=== PATIENT | female | born 1945 | race Caucasian/White ===

== ENCOUNTER 2017-07-02 07:39 | Day surgery (SDC) | payer MEDICARE ==
[2017-06-28 16:35] VITALS: BMI 40.1
[~2017-07-02 07:39] MED LIST: DEXAMETHASONE SOD PHOSPHATE 10 MG/ML 1 ML VIAL IV ONE; HYDROmorphone 1 MG/ML 1 ML SYRINGE IVP PRN; ONDANSETRON 4 MG/2 ML VIAL IVP ONE; ceFAZolin 2 GM in SODIUM CHLORIDE 0.9% 100 ML IVPB ONE
[2017-07-02 08:42] LABS: Glucose,Whole Blood 197 mg/dL (75-99)
[2017-07-02] MEDS: LACTATED RINGERS 1,000 ML IV SCH ×2 (08:44→13:00)
[2017-07-02] MEDS ORDERED: LIDOCAINE 1% 20 ML VIAL (10MG/ML) FOR IV START INTRADERMA ONE (08:45)
[2017-07-02] MEDS: MIDAZOLAM 2 MG/2 ML VIAL IV ONE ×2 (09:15→09:29)
[2017-07-02] MEDS ORDERED: LIDOCAINE 2%-EPI 1:100,000 20 ML VIAL ONE (09:45)
[2017-07-02] MEDS ORDERED: MIDAZOLAM 2 MG/2 ML VIAL ONE (09:45)
[2017-07-02] MEDS ORDERED: PROPOFOL 10 MG/ML 20 ML VIAL IV ONE (09:45)
[2017-07-02] MEDS ORDERED: KETAMINE 10 MG/ML 20 ML VIAL ONE (09:45)
[2017-07-02] MEDS ORDERED: fentaNYL (PF) 50 MCG/ML 2 ML AMP ONE (09:45)
[2017-07-02] MEDS ORDERED: GLYCOPYRROLATE 0.2 MG/ML 2 ML VIAL ONE (09:45)
[2017-07-02] MEDS ORDERED: ROPIVACAINE 5 MG/ML 30 ML VIAL ONE (09:45)
[2017-07-02] MEDS ORDERED: ceFAZolin 1,000 MG in SODIUM CHLORIDE 0.9% 1,000 ML IRRIGATION ONE (10:08)
[2017-07-02] MEDS ORDERED: LACTATED RINGERS 1,000 ML IV ONE (11:06)
--- NOTE | 2017-07-02 11:14 | FL ---
EXAMINATION TYPE: FL guidance operating room, XR wrist limited LT DATE OF EXAM: 07/02/2017 CLINICAL HISTORY: Left wrist fracture. TECHNIQUE: Fluoroscopy. Limited intraoperative views left wrist. COMPARISON: None. FINDINGS: Fluoroscopic guidance was provided during open reduction internal fixation procedure perfo rmed by Dr. Green. A total of 4 seconds of fluoroscopic time was utilized during the procedure and 2 spot images are acquired. Intraoperative images acquired show placement of distal fixating plate with multiple extending screws through distal radius, satisfactory alignment is seen on intraoperative images provided after reduct ion and fixation. Fracture line is not well seen. Prominent body habitus noted. IMPRESSION: As Above.
[2017-07-02] MEDS ORDERED: hydrOXYzine PAMOATE 25 MG CAP PO PRN (11:21)
[2017-07-02] MEDS ORDERED: diphenhydrAMINE 25 MG CAP PO PRN (11:21)
[2017-07-02] MEDS ORDERED: ONDANSETRON 4 MG/2 ML VIAL IVP PRN (11:21)
[2017-07-02] MEDS ORDERED: HYDROmorphone 1 MG/ML 1 ML SYRINGE IVP PRN ×2 (11:21)
[2017-07-02] MEDS ORDERED: TEMAZEPAM 15 MG CAP PO PRN (11:21)
[2017-07-02] MEDS ORDERED: SENNOSIDES-DOCUSATE SODIUM 1 EACH TAB PO PRN (11:21)
[2017-07-02 11:35] LABS: Glucose,Whole Blood 173 mg/dL (75-99)
[2017-07-02 12:49] LABS: Glucose,Whole Blood 185 mg/dL (75-99)
[2017-07-02 12:53] VITALS: RESP 18
--- NOTE | 2017-07-02 13:26 | P.CONS ---
History of Present Illness - Reason for Consult Consult date: 07/02/17 Medical management Requesting physician: Anam Green - Chief Complaint Fracture left lower end of radius - History of Present Illness This is a 72-year-old female one of Dr. Gonzalez with a previous medical history significant for hypertension and hypertensive cardiovascular disease with left ventricular hypertrophy, history of diabetes mellitus type 2, GERD, history of kidney stones, idiopathic peripheral neuropathy, hyperlipidemia, hypothyroidism, patient fell and Saturday while she was trying to open her door and she stepped on the curb and landed on her left arm to try to break her fall she ended up with a broken lower end of the radius underwent surgery that was done by Dr. Aviles were asked to see the patient for medicine for medical management. Patient is laying down in bed in no apparent distress she denies any chest pain , shortness breath, she has no abdominal pain, nausea, vomiting, or diarrhea. Her family where the bedside including her brother as well as her son. Review of Systems Constitutional: Denies anorexia, Denies chronic headaches, Denies lethargy, Denies malaise, Denies weight gain, Denies weight loss Eyes: denies blurred vision, denies bulging eye, denies decreased vision, denies diplopia Ears: deny: decreased hearing Ears, nose, mouth and throat: Denies dysphagia, Denies neck lump, Denies sore throat Cardiovascular: Reports decreased exercise tolerance, Reports high blood pressure, Reports shortness of breath, Denies chest pain, Denies phlebitis, Denies rapid heart beat, Denies syncope Respiratory: Denies congestion, Denies cough, Denies home oxygen, Denies sleep apnea, Denies snoring, Denies wheezing Gastrointestinal: Denies abdominal pain, Denies belching, Denies change in bowel habits, Denies heartburn, Denies melena, Denies nausea, Denies vomiting Genitourinary: Denies dysuria, Denies urgency Musculoskeletal: Denies myalgias Musculoskeletal: left: hand pain, hand stiffness, hand swelling, absent: ankle pain, ankle stiffness, ankle swelling, elbow pain, elbow stiffness, elbow swelling, foot pain, foot stiffness, hip pain, hip stiffness, hip swelling, knee pain, knee stiffness, knee swelling, shoulder pain, shoulder stiffness, shoulder swelling, wrist pain, wrist stiffness, wrist swelling Integumentary: Denies pruritus, Denies rash Neurological: Denies numbness, Denies weakness Psychiatric: Denies anxiety, Denies depression Endocrine: Denies fatigue, Denies weight change Past Medical History Past Medical History: Diabetes Mellitus, Eye Disorder, GERD/Reflux, Hyperlipidemia, Hypertension, Osteoarthritis (OA), Thyroid Disorder Additional Past Medical History / Comment(s): FX LT WRIST History of Any Multi-Drug Resistant Organisms: None Reported Past Surgical History: Appendectomy, Cholecystectomy, Hernia Repair, Hysterectomy, Orthopedic Surgery Additional Past Surgical History / Comment(s): LT KNEE SX. LT ANKLE SX,. LEFT WRIST ORIF Past Anesthesia/Blood Transfusion Reactions: Previous Problems w/ Anesthesia Additional Past Anesthesia/Blood Transfusion Reaction / Comm: PT STATES THAT SHE HAD GENERAL ANESTHESIA AND STOPPED BREATHING. Past Psychological History: No Psychological Hx Reported Smoking Status: Never smoker Past Alcohol Use History: None Reported Past Drug Use History: None Reported - Past Family History Mother Family Medical History: Cancer (Mother at age of 82 from throat cancer she also has CAD and hypertension.), Coronary Artery Disease (CAD), Hypertension Father Family Medical History: GI Bleed (Father at the age of 57 from perforated ulcer.) Brother(s) Family Medical History: Cancer (Patient had 4 brothers 2 is alive with no major medical problems, one from a 70 dementia and other one from bone cancer.), Dementia Sister(s) Family Medical History: No Reported History (Patient has one sister no major medical problems.) Son(s) Family Medical History: No Reported History (Patient has 2 sons no major medical problems.) Medications and Allergies Home Medications Medication Instructions Recorded Confirmed Type Aspirin [Adult Low Dose Aspirin EC] 81 mg PO DAILY 06/28/17 06/28/17 History Atorvastatin [Lipitor] 10 mg PO DAILY 06/28/17 06/28/17 History B-Carotene/Vit C/E/Lut/Min 29 1 each PO DAILY 06/28/17 06/28/17 History [Macuvite with Lutein Tablet] Baclofen [Lioresal] 10 mg PO TID 06/28/17 06/28/17 History Furosemide [Lasix] 40 mg PO DAILY 06/28/17 06/28/17 History Gabapentin [Neurontin] 300 mg PO BID 06/28/17 06/28/17 History HYDROcodone/APAP 5-325MG [[place] 2 tab PO Q4HR PRN 06/28/17 06/28/17 History 5-325] Lactobacillus Acidophilus 1 each PO DAILY 06/28/17 06/28/17 History [Acidophilus] Lisinopril [Zestril] 2.5 mg PO DAILY 06/28/17 06/28/17 History Omeprazole [PriLOSEC] 20 mg PO DAILY 06/28/17 06/28/17 History Propylene Glycol/Peg 400 [Systane 1 drop BOTH EYES BID 06/28/17 06/28/17 History Ultra 0.4-0.3% Eye Drp] Vit C/E/Zn/Coppr/Lutein/Zeaxan 2 each PO DAILY 06/28/17 06/28/17 History [Preservision Areds 2 Softgel] amLODIPine [Norvasc] 5 mg PO DAILY 06/28/17 06/28/17 History metFORMIN HCL 1,000 mg PO BID 06/28/17 06/28/17 History Allergies Allergy/AdvReac Type Severity Reaction Status Date / Time codeine Allergy Unknown Verified 07/02/17 08:23 erythromycin base Allergy Nausea & Verified 07/02/17 08:23 Vomiting nifedipine Allergy Unknown Verified 07/02/17 08:23 ANESTHSIA-TYPE UNKNOWN Allergy STOPPED Uncoded 07/02/17 08:23 BREATHING PER PT Physical Exam Vitals: Vital Signs Temp Pulse Pulse Pulse Resp BP BP 07/02/17 12:15 97.7 F 101 H 18 145/58 07/02/17 12:00 101 H 16 120/58 07/02/17 11:45 104 H 16 114/52 07/02/17 11:30 107 H 16 125/57 07/02/17 11:17 98.1 F 115 H 16 133/61 07/02/17 08:41 97.6 F 104 H 16 135/60 Pulse Ox 07/02/17 12:15 92 L 07/02/17 12:00 98 07/02/17 11:45 95 07/02/17 11:30 95 07/02/17 11:17 93 L 07/02/17 08:41 94 L Intake and Output 07/01/17 07/02/17 07/02/17 22:59 06:59 14:59 Intake Total 1301 Output Total 20 Balance 1281 Intake: IV 1301 Output: Estimated Blood Loss 20 - Constitutional General appearance: no acute distress, obese - EENT Eyes: anicteric sclerae, EOMI, PERRLA, no ptosis, no scleral icterus, normal appearance ENT: hearing grossly normal, NA/AT, normal oropharynx, no thrush Ears: bilateral: normal - Neck Neck: no lymphadenopathy, normal ROM, no rigidity, no stridor Carotids: bilateral: upstroke delayed Thyroid: bilateral: normal size - Respiratory Respiratory: bilateral: diminished, negative: dullness, rales, rhonchi, wheezing , prolonged expiration, prolonged inspiration - Cardiovascular Rhythm: regular Heart sounds: normal: S1, S2 Abnormal Heart Sounds: systolic murmur - Gastrointestinal General gastrointestinal: normal bowel sounds, soft, no splenomegaly, no tenderness, no umbilical hernia, no ventral hernia - Integumentary Integumentary: normal, normal turgor - Neurologic Neurologic: CNII-XII intact - Musculoskeletal Musculoskeletal: strength equal bilaterally - Psychiatric Psychiatric: A&O x's 3, appropriate affect, intact judgment & insight Results CBC & Chem 7: 07/02/17 08:45 Labs: Abnormal Lab Results - Last 24 Hours (Table) 07/02/17 07/02/17 07/02/17 Range/Units 08:32 11:31 12:46 POC Glucose (mg/dL) 197 H 173 H 185 H (75-99) mg/dL Assessment and Plan Plan: Assessment and plan: 1. Postoperative day #0 status post left wrist open reduction and internal fixation. Patient was instructed to use the incentive spirometer any early ambulation, and tinea current pain management as outlined by orthopedic surgery. 2. Hypertension and hypertensive cardiovascular disease. Continue patient on amlodipine 5 mg orally once every day, lisinopril 2.5 mg orally once every day. 3. Diabetes mellitus type 2. Continue patient on metformin thousand milligrams orally twice every day. BJ before each meal and at bedtime. 4. Peripheral neuropathy. Continue gabapentin 100 mg at bedtime. 5. Hyperlipidemia. Continue Lipitor 10 mg orally once every day. 6. Adult macro degeneration. Continue patient on PreserVision. 7. GERD. Continue patient on PPI. 8. Anxiety disorder. Stable. 9. Obesity with possible obstructive sleep apnea need sleep study as an outpatient. 10. Peripheral edema. Hold Lasix for the next 24 hours and resume tomorrow morning. 11. DVT prophylaxis. Heparin 5000 units subcutaneously every 8 hours. 12. GI prophylaxis. Continue patient on PPI. 13. Thanks for the consult we will follow with you.
[2017-07-02] MEDS: traMADol 50 MG TAB PO SCH ×3 (16:36→20:06)
[2017-07-02 16:37] LABS: Glucose,Whole Blood 230 mg/dL (75-99)
[2017-07-02] MEDS: metFORMIN 500 MG TAB PO SCH (16:38)
[2017-07-02] MEDS: ceFAZolin 2 GM in SODIUM CHLORIDE 0.9% 100 ML IVPB SCH (16:39)
[2017-07-02] MEDS: HEPARIN SODIUM,PORCINE 5,000 UNIT/ML 1 ML VIAL SQ SCH (16:39)
[2017-07-02] MEDS: BACLOFEN 10 MG TAB PO SCH ×2 (16:39→20:02)
[2017-07-02] MEDS: ARTIFICIAL TEARS-HYPROMELLOSE DROPS 15 ML BTL BOTH EYES SCH (20:02)
[2017-07-02] MEDS: GABAPENTIN 300 MG CAP PO SCH (20:02)
[2017-07-02 20:31] LABS: Glucose,Whole Blood 151 mg/dL (75-99)
[2017-07-03] MEDS: HYDROmorphone 1 MG/ML 1 ML SYRINGE IVP PRN ×4 (00:11→10:51)
[2017-07-03] MEDS: ceFAZolin 2 GM in SODIUM CHLORIDE 0.9% 100 ML IVPB SCH (00:14)
[2017-07-03] MEDS: HEPARIN SODIUM,PORCINE 5,000 UNIT/ML 1 ML VIAL SQ SCH ×2 (00:16→08:15)
[2017-07-03 06:56] LABS: Basophils % (A) 0 %; CH 30.1; CHCM 32.4; Eosinophils # (A) 0.3 k/uL (0-0.7); Eosinophils % (A) 2 %; HCT 35.3 % (34.0-46.0); HDW 2.21; HGB 11.3 gm/dL (11.4-16.0); Luc # (Auto) 0.13; Luc % (Auto) 1; Lymphocytes # (A) 2.5 k/uL (1.0-4.8); Lymphocytes % (A) 21 %; MCH 29.9 pg (25.0-35.0); MCV 93.3 fL (80.0-100.0); Mean Platelet Volume 8.5; Monocytes # (A) 0.5 k/uL (0-1.0); Monocytes % (A) 4 %; Neutrophils # (A) 8.4 k/uL (1.3-7.7); Neutrophils % (A) 71 %; RBC 3.79 m/uL (3.80-5.40); RDW 13.8 % (11.5-15.5); WBC 11.8 k/uL (3.8-10.6); WBC (Perox) 12.06
[2017-07-03 07:14] LABS: Glucose,Whole Blood 120 mg/dL (75-99)
[2017-07-03] MEDS ORDERED: PANTOPRAZOLE 40 MG TABLET PO SCH (07:30)
[2017-07-03 07:40] LABS: Calcium 8.5 mg/dL (8.4-10.2); Potassium 4.6 mmol/L (3.5-5.1); Total Bilirubin 0.4 mg/dL (0.2-1.3); Total Protein 5.9 g/dL (6.3-8.2)
[2017-07-03 07:46] LABS: Magnesium 1.1 mg/dL (1.6-2.3)
[2017-07-03] MEDS: metFORMIN 500 MG TAB PO SCH (07:46)
[2017-07-03] MEDS: LACTATED RINGERS 1,000 ML IV SCH ×2 (07:49)
[2017-07-03] MEDS: BACLOFEN 10 MG TAB PO SCH (08:15)
[2017-07-03] MEDS: GABAPENTIN 300 MG CAP PO SCH (08:15)
[2017-07-03] MEDS: ARTIFICIAL TEARS-HYPROMELLOSE DROPS 15 ML BTL BOTH EYES SCH (08:15)
[2017-07-03] MEDS: LACTOBACILLUS ACIDOPH & BULGAR 1 EACH PACKET PO SCH ×2 (08:16→08:22)
--- NOTE | 2017-07-03 08:16 | P.DS ---
Providers Expected date of discharge: 07/03/17 Attending physician: Anam Green Consults: 07/02/17 11:21 Consult Physician Routine Consulting Provider: Adalberto Gonzalez Reason/Comments: medical management Do you want consulting provider notified?: Yes Primary care physician: Adalberto Gonzalez - Discharge Diagnosis(es) (1) Status post wrist surgery Current Visit: Yes Status: Acute (2) Distal radius fracture, left Current Visit: Yes Status: Acute Hospital Course: This is a 72-year-old female who is seen in our office last week with injury to her left wrist. Exam and x-ray revealed displaced distal radius fracture. It is recommended that she have open reduction internal fixation of the left wrist. The patient is admitted to [facility] on 07/02/2017 for open reduction showed fixation of left wrist. The procedures performed without convocation or sequelae. Patient is doing well postoperatively. Vital signs are stable. Patient is discharged to home on 07/03/2017. She is to take her splint to her left upper extremity. She is encouraged to do finger motion frequently. Follow -up in 10-14 days. Patient Condition at Discharge: Good Plan - Discharge Summary New Discharge Prescriptions: New Cephalexin [Keflex] 500 mg PO Q8HR #15 cap Sennosides-Docusate Sodium [Senokot-S] 1 tab PO BID #60 tablet traMADol HCL [Ultram] 50 mg PO Q6HR PRN #90 tab PRN Reason: Pain No Action amLODIPine [Norvasc] 5 mg PO DAILY Lisinopril [Zestril] 2.5 mg PO DAILY HYDROcodone/APAP 5-325MG [[place] 5-325] 2 tab PO Q4HR PRN PRN Reason: Pain Gabapentin [Neurontin] 300 mg PO BID Furosemide [Lasix] 40 mg PO DAILY Baclofen [Lioresal] 10 mg PO TID Atorvastatin [Lipitor] 10 mg PO DAILY Omeprazole [PriLOSEC] 20 mg PO DAILY metFORMIN HCL 1,000 mg PO BID Vit C/E/Zn/Coppr/Lutein/Zeaxan [Preservision Areds 2 Softgel] 2 each PO DAILY Propylene Glycol/Peg 400 [Systane Ultra 0.4-0.3% Eye Drp] 1 drop BOTH EYES BID Lactobacillus Acidophilus [Acidophilus] 1 each PO DAILY B-Carotene/Vit C/E/Lut/Min 29 [Macuvite with Lutein Tablet] 1 each PO DAILY Aspirin [Adult Low Dose Aspirin EC] 81 mg PO DAILY Discharge Medication List Aspirin [Adult Low Dose Aspirin EC] 81 mg PO DAILY 06/28/17 [History] Atorvastatin [Lipitor] 10 mg PO DAILY 06/28/17 [History] B-Carotene/Vit C/E/Lut/Min 29 [Macuvite with Lutein Tablet] 1 each PO DAILY 03/11 [History] Baclofen [Lioresal] 10 mg PO TID 06/28/17 [History] Furosemide [Lasix] 40 mg PO DAILY 06/28/17 [History] Gabapentin [Neurontin] 300 mg PO BID 06/28/17 [History] HYDROcodone/APAP 5-325MG [[place] 5-325] 2 tab PO Q4HR PRN 06/28/17 [History] Lactobacillus Acidophilus [Acidophilus] 1 each PO DAILY 06/28/17 [History] Lisinopril [Zestril] 2.5 mg PO DAILY 06/28/17 [History] Omeprazole [PriLOSEC] 20 mg PO DAILY 06/28/17 [History] Propylene Glycol/Peg 400 [Systane Ultra 0.4-0.3% Eye Drp] 1 drop BOTH EYES BID 06/28/17 [History] Vit C/E/Zn/Coppr/Lutein/Zeaxan [Preservision Areds 2 Softgel] 2 each PO DAILY [History] amLODIPine [Norvasc] 5 mg PO DAILY 06/28/17 [History] metFORMIN HCL 1,000 mg PO BID 06/28/17 [History] Cephalexin [Keflex] 500 mg PO Q8HR #15 cap 07/02/17 [Rx] Sennosides-Docusate Sodium [Senokot-S] 1 tab PO BID #60 tablet 07/02/17 [Rx] traMADol HCL [Ultram] 50 mg PO Q6HR PRN #90 tab 07/02/17 [Rx] Follow up Appointment(s)/Referral(s): Anam Green DO [Doctor of Osteopathic Medicine] - 2 Weeks Activity/Diet/Wound Care/Special Instructions: Keep splint intact. Discharge Disposition: HOME SELF-CARE
[2017-07-03] MEDS: traMADol 50 MG TAB PO SCH ×2 (08:17→12:53)
[2017-07-03 08:27] VITALS: PULSE 89
[2017-07-03] MEDS ORDERED: [UNRECOGNIZED DRUG - OTHER] PO SCH (09:00)
[2017-07-03] MEDS ORDERED: LISINOPRIL 2.5 MG TAB PO SCH (09:00)
[2017-07-03] MEDS ORDERED: VIT A,C & E-LUTEIN-MINERALS 1 EACH TAB PO SCH (09:00)
[2017-07-03] MEDS ORDERED: ASPIRIN 81 MG CHEW PO SCH (09:00)
[2017-07-03] MEDS ORDERED: amLODIPine 5 MG TAB PO SCH (09:00)
[2017-07-03] MEDS ORDERED: ATORVASTATIN 10 MG TAB PO SCH (09:00)
[2017-07-03 12:13] LABS: Glucose,Whole Blood 134 mg/dL (75-99)
[2017-07-03 12:27] VITALS: BP 118/62; TEMP 97.8
--- NOTE | 2017-07-03 14:41 | P.PN ---
Subjective This is a 72-year-old female one of Dr. Gonzalez with a previous medical history significant for hypertension and hypertensive cardiovascular disease with left ventricular hypertrophy, history of diabetes mellitus type 2, GERD, history of kidney stones, idiopathic peripheral neuropathy, hyperlipidemia, hypothyroidism, patient fell and Saturday while she was trying to open her door and she stepped on the curb and landed on her left arm to try to break her fall she ended up with a broken lower end of the radius underwent surgery that was done by Dr. Aviles were asked to see the patient for medicine for medical management. Patient is laying down in bed in no apparent distress she denies any chest pain , shortness breath, she has no abdominal pain, nausea, vomiting, or diarrhea. Her family where the bedside including her brother as well as her son. 07/03: Patient denies any new complaints. Patient is being discharged home today by orthopedics. Objective - Vital Signs Vital signs: Vital Signs Temp 97.5 F L 07/03/17 08:00 Pulse 89 07/03/17 08:00 Resp 18 07/03/17 08:00 BP 143/87 07/03/17 08:00 Pulse Ox 95 07/03/17 08:00 Intake & Output 07/02/17 07/03/17 07/03/17 18:59 06:59 18:59 Intake Total 2020 Output Total 20 Balance 2000 Weight 106 kg Intake: IV 1301 Oral 720 Output: Estimated Blood Loss 20 Other: Voiding Method Toilet Toilet - Exam General appearance: no acute distress, obese - EENT Eyes: anicteric sclerae, EOMI, PERRLA, no ptosis, no scleral icterus, normal appearance ENT: hearing grossly normal, NA/AT, normal oropharynx, no thrush Ears: bilateral: normal - Neck Neck: no lymphadenopathy, normal ROM, no rigidity, no stridor Carotids: bilateral: upstroke delayed Thyroid: bilateral: normal size - Respiratory Respiratory: bilateral: diminished, negative: dullness, rales, rhonchi, wheezing , prolonged expiration, prolonged inspiration - Cardiovascular Rhythm: regular Heart sounds: normal: S1, S2 Abnormal Heart Sounds: systolic murmur - Gastrointestinal General gastrointestinal: normal bowel sounds, soft, no splenomegaly, no tenderness, no umbilical hernia, no ventral hernia - Integumentary Integumentary: normal, normal turgor - Neurologic Neurologic: CNII-XII intact - Musculoskeletal Musculoskeletal: strength equal bilaterally - Psychiatric Psychiatric: A&O x's 3, appropriate affect, intact judgment & insight - Labs CBC & Chem 7: 07/03/17 06:34 07/03/17 06:34 Labs: Abnormal Lab Results - Last 24 Hours (Table) 07/02/17 07/02/17 07/02/17 Range/Units 11:31 12:46 16:30 WBC (3.8-10.6) k/uL RBC (3.80-5.40) m/uL Hgb (11.4-16.0) gm/dL Neutrophils # (1.3-7.7) k/uL BUN (7-17) mg/dL Creatinine (0.52-1.04) mg/dL Glucose (74-99) mg/dL POC Glucose (mg/dL) 173 H 185 H 230 H (75-99) mg/dL Magnesium (1.6-2.3) mg/dL Total Protein (6.3-8.2) g/dL Albumin (3.5-5.0) g/dL 07/02/17 07/03/17 07/03/17 Range/Units 20:30 06:34 06:34 WBC 11.8 H (3.8-10.6) k/uL RBC 3.79 L (3.80-5.40) m/uL Hgb 11.3 L (11.4-16.0) gm/dL Neutrophils # 8.4 H (1.3-7.7) k/uL BUN 40 H (7-17) mg/dL Creatinine 1.37 H (0.52-1.04) mg/dL Glucose 112 H (74-99) mg/dL POC Glucose (mg/dL) 151 H (75-99) mg/dL Magnesium 1.1 L (1.6-2.3) mg/dL Total Protein 5.9 L (6.3-8.2) g/dL Albumin 3.4 L (3.5-5.0) g/dL 07/03/17 Range/Units 07:12 WBC (3.8-10.6) k/uL RBC (3.80-5.40) m/uL Hgb (11.4-16.0) gm/dL Neutrophils # (1.3-7.7) k/uL BUN (7-17) mg/dL Creatinine (0.52-1.04) mg/dL Glucose (74-99) mg/dL POC Glucose (mg/dL) 120 H (75-99) mg/dL Magnesium (1.6-2.3) mg/dL Total Protein (6.3-8.2) g/dL Albumin (3.5-5.0) g/dL Assessment and Plan Plan: 1. Status post left wrist open reduction and internal fixation. Patient was instructed to use the incentive spirometer any early ambulation, and tinea current pain management as outlined by orthopedic surgery. 2. Hypertension and hypertensive cardiovascular disease. Continue patient on amlodipine 5 mg orally once every day, lisinopril 2.5 mg orally once every day. 3. Diabetes mellitus type 2. Continue patient on metformin thousand milligrams orally twice every day. BJ before each meal and at bedtime. 4. Peripheral neuropathy. Continue gabapentin 100 mg at bedtime. 5. Hyperlipidemia. Continue Lipitor 10 mg orally once every day. 6. Adult macro degeneration. Continue patient on PreserVision. 7. GERD. Continue patient on PPI. 8. Anxiety disorder. Stable. 9. Obesity with possible obstructive sleep apnea need sleep study as an outpatient. 10. Peripheral edema. Hold Lasix for the next 24 hours and resume tomorrow morning. 11. DVT prophylaxis. Heparin 5000 units subcutaneously every 8 hours. 12. GI prophylaxis. Continue patient on PPI. Discharge plan: Home Impression and plan of care have been directed as dictated by the signing physician. Mary Flowers nurse practitioner acting as scribe for signing physician.
--- NOTE | 2017-07-08 19:23 | OP ---
DATE OF SURGERY: 07/02/2017 [employer] MANAGER: Janie Paiz PA-C PREOPERATIVE DIAGNOSIS: Volar displaced fracture of the distal left radius. POSTOPERATIVE DIAGNOSIS: Volar displaced fracture of the distal left radius. PROCEDURE PERFORMED: Open reduction internal fixation utilizing a ( ) distal radius ( ). PROCEDURE: The patient was taken to the operative suite, placed in the supine position. Regional anesthesia was performed by the Department of Anesthesiology. A Betadine prep was carried out over the left arm and hand. Sterile drapes applied in the usual manner. Pneumatic tourniquet was inflated to 250 mmHg. A longitudinal incision was carried out along the ( ), along the carpi radialis tendon. Dissection through the subcutaneous tissues was performed. Great visualization of the ( ) nerve ( ) median nerve itself. General retraction was performed obtaining access to the volar ( ) of the distal radius. ( ) applied to the ( ) and ( ) improvement ( ) the distal radius. Fracture was identified and with gentle reduction, maintained position. X-rays were reviewed, documenting position both AP and lateral projections. A ( ) volar plate was then placed into position and secured ( ). X-rays were repeated and further positioning of the peg screws and locking screws ( ) was performed. The plate was secured to the distal radius with ( ) locking proximal screws. X-rays were reviewed following procedure, documenting alignment and stability. Area was irrigated copiously. The superficial fascia was approximately with 3- 0 Vicryl suture, subcutaneous tissue with 2-0 Vicryl suture ( ), skin with 4-0 nylon in interrupted fashion. Betadine, Adaptic and sterile pressure dressing was applied. ( ) pneumatic tourniquet ( ) bleeding at this time. The patient was placed in a ( ) splint and transferred to the recovery room in satisfactory condition. GROSS PATHOLOGY: Displaced fracture of the distal left radius with significant volar ( ). MTDD
== END 2017-07-03 13:49 | disposition home or self-care (01) ==
LOC: OR 07:39 → 3OBS 11:12 → OR 07-03 13:49
PROVIDERS: ATTEND Orthopaedic Surgery
DX: S52.502A Unspecified fracture of the lower end of left radius, initial encounter for closed fracture (principal); W18.30XA Fall on same level, unspecified, initial encounter; I10 Essential (primary) hypertension; E78.5 Hyperlipidemia, unspecified; E11.9 Type 2 diabetes mellitus without complications; Z79.84 Long term (current) use of oral hypoglycemic drugs; Z79.82 Long term (current) use of aspirin; Z79.891 Long term (current) use of opiate analgesic; Z79.899 Other long term (current) drug therapy; Z88.5 Allergy status to narcotic agent
CPT/HCPCS: 80053; 83735; 84132; 85025; 73100; 25607; C1713 ×2; J2250; J1644 ×2; J0690 ×3; J2405; J3010; J1170; J2795; J2704

== ENCOUNTER → 2018-05-07 | Outpatient (CLI) | payer MEDICARE ==
--- NOTE | 2018-05-07 15:13 | BD ---
EXAMINATION TYPE: Axial Bone Density DATE OF EXAM: 05/07/2018 COMPARISON: 01/09/2016 CLINICAL HISTORY: Postmenopausal female. Osteoporosis screening. Height: 61 IN Weight: 221 LBS FRAX RISK QUESTIONS: History of Fracture in Adulthood: LT WRIST FX AGE 72 Secondary Osteoporosis: RISK FACTORS HISTORY OF: Family History of Osteoporosis: MOTHER/ SISTER Active: MODERATE Diet low in dairy products/other sources of calcium: YES Postmenopausal woman: AGE 50 Lost more than 2 inches in height since high school: YES MEDICATIONS: Additional Medications: PRILOSEC, METFORMIN, FUROSEMIDE, AMLODIPINE, ATORVASTATIN, LISINOPRIL, BACLOF EN, ACIDOPHILUS,ASPIRIN, GABAPENTIN, PRESER VISION, EXAM MEASUREMENTS: Bone mineral densitometry was performed using the [employer] System. Bone mineral density as measured about the Lumbar spine is: ----- L1-L4(G/cm2): 1.083 T Score Values are as follows: ----- L2: -0.4 ----- L3: -1.1 ----- L4: -1.2 ----- L1-L4: -0.8 Bone mineral density has: Decreased -2.9% since study of: 01/09/2016 Bone mineral density about the R hip (g/cm2): 0.858 Bone mineral density about the L hip (g/cm2): 0.793 T Score values are as follows: -----R Neck: -1.3 -----L Neck: -1.8 -----R Total: -0.4 -----L Total: -0.7 Bone mineral density has: Decreased -7.3% since study of: 01/09/2016 IMPRESSION: Osteopenia (T Score between -2.5 and -1). There is slightly increased risk of fracture and the patient may be considered for treatment. Re-Screen 2-5 years. NOTE: T-SCORE=SD OF THE YOUNG ADULT MEAN.
--- NOTE | 2018-05-09 10:31 | MM ---
Reason for exam: screening (asymptomatic). Last mammogram was performed 2 years and 4 months ago. History: Patient is postmenopausal. Physical Findings: A clinical breast exam by your physician is recommended on an annual basis and results should be correlated with mammographic findings. MG 3D Screening Mammo W/Cad Bilateral CC and MLO view(s) were taken. Prior study comparison: January 09, 2016, bilateral MG screening mammo w CAD. January 07, 2015, bilateral MG screening mammo w CAD. There are scattered fibroglandular densities. Focal asymmetry stable left breast upper outer quadrant. No significant changes when compared with prior studies. ASSESSMENT: Benign, BI-RAD 2 RECOMMENDATION: Routine screening mammogram of both breasts in 1 year.
== END | disposition home or self-care (01) ==
LOC: RADMAMWWP 12:37
PROVIDERS: ATTEND Internal Medicine Geriatric Medicine
DX: Z12.31 Encounter for screening mammogram for malignant neoplasm of breast (principal); M85.88 Other specified disorders of bone density and structure, other site
CPT/HCPCS: 77063; 77067; 77080

== ENCOUNTER → 2023-05-16 | Outpatient (CLI) | payer MEDICARE ==
--- NOTE | 2023-05-16 20:01 | BD ---
EXAMINATION TYPE: Axial Bone Density DATE OF EXAM: 05/16/2023 CLINICAL HISTORY: 77 years old Female. ICD-10 CODE: M810 AGE RELATED OSTEO Height: 61" Weight: 229.1 lbs FRAX RISK QUESTIONS: Alcohol (3 or more units per day): No Family History (Parent hip fracture): No Glucocorticoids (More than 3mos): No (Ex: prednisone, prednisolone, methylprednisolone, dexamethasone, and hydrocortisone). History of Fracture in Adulthood: Yes, left ankle, left knee, left forearm Secondary Osteoporosis: 1. Type 1 Diabetes: Unknown 2. Hyperthyroidism: No 3. Menopause before 45: Unknown 4. Malnutrition: No 5. Chronic liver disease: No Rheumatoid Arthritis: No Current Tobacco Use: No RISK FACTORS HISTORY OF: Hip Fracture (Right/Left): No Spine Fracture: No History of Wrist Fracture: No Surgery to Spine/Hip(right/left)/Wrist (right/left): No Family History of Osteoporosis: Yes, mother and sister Active: Yes Diet low in dairy products/other sources of calcium: No Postmenopausal woman: Yes Lost more than 2 inches in height since high school: Yes Frequent falls: No Poor Health: No Hyperparathyroidism: No Adrenal Insufficiency: No MEDICATIONS: Prednisone or other steroids: No Thyroid Medications: No Osteoporosis Medications: No Additional Medications: Blood pressure medication, diabetic medication, (patient is unsure of all of her medications she did not bring a list with her) Additional History: None EXAM MEASUREMENTS: Bone mineral densitometry was performed using the [employer] System. Bone mineral density as measured about the Lumbar spine is: ----- L1-L4(G/cm2): 1.097 T Score Values are as follows: ----- L1: 0.0 ----- L2: -1.0 ----- L3: -1.3 ----- L4: -0.3 ----- L1-L4: -0.7 Z Score Values are as follows: ----- L1: 0.6 ----- L2: -0.4 ----- L3: -0.7 ----- L4: 0.3 ----- L1-L4: -0.1 Bone mineral density has: increased 1.3% since study of: 05/07/2018 Bone mineral density about the R hip (g/cm2): 0.877 Bone mineral density about the L hip (g/cm2): 0.901 T Score values are as follows: -----R Neck: -1.8 -----L Neck: -1.9 -----R Total: -1.0 -----L Total: -0.8 Z Score values are as follows: -----R Neck: -0.6 -----L Neck: -0.7 -----R Total: -0.1 -----L Total: 0.1 Bone mineral density has: decreased 5.0% since study of: 05/07/2018 FRAX%s: The graph provided illustrates a 17.1% chance for a major osteoporotic fx and a 3.7% chance f or the hips probability for fx in 10 years time. IMPRESSION: Osteopenia (T Score between -2.5 and -1). There is slightly increased risk of fracture and the patient may be considered for treatment. Re-Screen 2-5 years. NOTE: T-SCORE=SD OF THE YOUNG ADULT MEAN.
--- NOTE | 2023-05-17 08:38 | MM ---
Reason for Exam: Screening (asymptomatic). Last mammogram was performed 5 year(s) and 0 month(s) ago. Patient History: Menarche at age 15. First Full-Term at age 19. Hysterectomy at age 50. Postmenopausal. Risk Values: Angela 5 year model risk: 1.3%. NCI Lifetime model risk: 2.8%. Prior Study Comparison: 01/07/2015 Bilateral Screening Mammogram, [facility]. 01/09/2016 Bilateral Screening Mammogram, [facility]. 05/07/2018 Bilateral Screening Mammogram, [facility]. Tissue Density: There are scattered fibroglandular densities. Findings: Analyzed By CAD. There is no suspicious group of microcalcifications or new suspicious mass in either breast. Overall Assessment: Benign, BI-RAD 2 Management: Screening Mammogram of both breasts in 1 year. . Patient should continue monthly self-breast exams. A clinical breast exam by your physician is recommended on an annual basis. This exam should not preclude additional follow-up of suspicious palpable abnormalities. Note on Angela scores and lifetime risk: 1. A Angela score greater than 3% is considered moderate risk. If this is the case, consider specialist referral to assess eligibility for a risk reducing agent. 2. If overall lifetime risk for the development of breast cancer is 20% or higher, the patient may qualify for future screening with alternating mammogram and breast MRI. Electronically signed and approved by: Chente Amanda M.D. Radiologis
== END | disposition home or self-care (01) ==
LOC: RADBDWWP 11:49
PROVIDERS: ATTEND Internal Medicine Geriatric Medicine
DX: Z12.31 Encounter for screening mammogram for malignant neoplasm of breast (principal); M85.89 Other specified disorders of bone density and structure, multiple sites; M81.0 Age-related osteoporosis without current pathological fracture; Z78.0 Asymptomatic menopausal state
CPT/HCPCS: 77063; 77067; 77080